=== PATIENT | male | born 1965 | race Caucasian/White ===

== ENCOUNTER 2020-08-03 16:57 | Emergency (ER) | payer BC, SELFPAY ==
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
[2020-08-03 16:59] VITALS: BP 135/77; PULSE 85; RESP 22; TEMP 36.7; O2SAT 100
[2020-08-03] MEDS: ONDANSETRON INJ 4 MG/2 ML VIAL IV PUSH (17:14)
[2020-08-03] MEDS: MORPHINE SULFATE (*CRX) 4 MG/ML INJ IV PUSH (17:14)
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
[2020-08-03 18:08] VITALS: BP 136/76; PULSE 80; RESP 18; O2SAT 99
== END 2020-08-03 18:10 | disposition short-term general hospital (02) ==
PROVIDERS: Emergency Provider Emergency Medicine; PCP Family Medicine
DX: R07.89 Other chest pain (principal); V28.4XXA Motorcycle driver injured in noncollision transport accident in traffic accident, initial encounter
CPT/HCPCS: 71045; 96374; 96375; 99285; J2270; J2405

== ENCOUNTER 2023-07-01 08:32 | Day surgery (SDC) | payer OTHER, SELFPAY ==
[2023-06-16 09:07] VITALS: BMI 30.4
[2023-06-22 11:06] VITALS: BMI 29.2
[2023-07-01 09:48] VITALS: BP 121/99; PULSE 83; RESP 20; TEMP 36.7; O2SAT 99
[2023-07-01] MEDS: LACTATED RINGERS 1,000 ML 150 ML IV CONT (10:02)
--- NOTE | 2023-07-01 10:10 | WPDANESEPPF ---
Anes - Initial Pre Proc Eval Procedure: Operation Date: 07/01/23 11:00 Proposed Procedures p Screening Colonoscopy - Pradeep Hilton MD Date/Time: 07/01/23 10:10 Surgeon: Pradeep Hilton MD Pre Op Diagnosis: Neoplasm Screening Patient Data Age: 57 Gender: M Height: 1.8 m Weight: 95.5 kg Last Vital Signs Temp 36.7 C 07/01/23 09:48 Pulse 83 07/01/23 09:48 Resp 20 07/01/23 09:48 BP 121/99 H 07/01/23 09:48 Pulse Ox 99 07/01/23 09:48 O2 Del Method Room Air 07/01/23 09:48 Allergies Allergy/AdvReac Type Severity Reaction Status Date / Time levofloxacin AdvReac Unknown Nausea Verified 07/01/23 09:45 sulfamethoxazole AdvReac Unknown Nausea Verified 07/01/23 09:45 Home Medications Medication Instructions Recorded Confirmed Type dolutegravir 50 mg-lamivudine 300 1 tablet PO DAILY 06/14/23 07/01/23 History mg tablet (Dovato) sodium,potassium,mag sulfates 17.5 See Rx Instructions PO .COMPLEX 06/16/23 06/22/23 Rx gram-3.13 gram-1.6 gram oral soln #354 mL (Suprep Bowel Prep Kit) cetirizine 10 mg tablet (Zyrtec) 10 mg PO DAILY PRN Allergic 06/22/23 07/01/23 History Symptoms multivit with minerals-iron 18 1 tablet PO DAILY 06/22/23 06/22/23 History mg-folic ac 400 mcg-vit K 25 mcg tablet (Adults Multivitamin) Patient hx anesthesia problems: none Family hx anesthesia problems: none Results Review: All pre-operative results and documents have been reviewed as part of the pre-operative evaluation. [facility] Past Medical History Medical History Allergic rhinitis History of HIV infection Surgical History Surgical History History of tonsillectomy 02/07/2013 Family History Family History Mother No problems noted. Father No problems noted. Grandparent Malignant neoplasm of prostate COPD (chronic obstructive pulmonary disease) Lung cancer Dementia Social History Social History Smoking status: Never smoker Alcohol intake: current Substance use: never Substance use type: does not use Do You Feel Safe in your Home?: Yes Lack of Transportation: No Lack of Food: Never True Current Housing: I Have Housing Concerned About Future Housing: No Difficulty Paying Gas/Electric Bills: No Difficulty Paying for Meds: No Currently Unemployed: No Education: High School Diploma/GED Difficulty w/ Childcare or Family Care: No Living arrangements: with family Occupation/Education: occupation Gender identity (if verbalized by the patient): Male Sexual Orientation (if Verbalized by the Patient): Straight or Heterosexual Spiritual care concerns: No Anes - Eval Final PreProcedure Day of Procedure 07/01/23 10:10 Patient weight: overweight Heart: regular rate and rhythm Lungs: clear to auscultation Airway: Mallampati scale class II Neurological: alert and oriented Last oral intake: >/= 8 hours ASA classification: III Emergent: no Anesthetic plan: proceed Anesthesia type and monitoring: general GIVS and standard monitoring Results Review: All pre-operative results and documents have been reviewed as part of the pre-operative evaluation. Informed Consent: The patient's anesthetic plan and its attendant risks and benefits were discussed with the patient/family/POA. Questions were solicited and answers provided to the satisfaction of the patient/family/POA.
--- NOTE | 2023-07-01 10:13 | PM.HPGS ---
History of Present Illness History of Present Illness Consent: Risks, benefits, and alternatives have been discussed and questions answered. Patient agrees to proceed with procedure. Chief complaint: Neoplasm Screening Narrative: Deion Cerna is a 57 year old male presents for screening colonoscopy. Patient's current weight appetite and bowel movements are normal. Patient is abdominal pain. He has had no bleeding. Family history is significant his mother had colon cancer. Patient himself had colon polyps diagnosed 5 years ago. These were benign tubular adenomas. Review of Systems Review of Systems: Review of systems is noncontributory. [facility] Past Medical History Medical History Allergic rhinitis History of HIV infection Surgical History Surgical History History of tonsillectomy 02/07/2013 Family History Family History Mother No problems noted. Father No problems noted. Grandparent Malignant neoplasm of prostate COPD (chronic obstructive pulmonary disease) Lung cancer Dementia Social History Social History Smoking status: Never smoker Alcohol intake: current Substance use: never Substance use type: does not use Do You Feel Safe in your Home?: Yes Lack of Transportation: No Lack of Food: Never True Current Housing: I Have Housing Concerned About Future Housing: No Difficulty Paying Gas/Electric Bills: No Difficulty Paying for Meds: No Currently Unemployed: No Education: High School Diploma/GED Difficulty w/ Childcare or Family Care: No Living arrangements: with family Occupation/Education: occupation Gender identity (if verbalized by the patient): Male Sexual Orientation (if Verbalized by the Patient): Straight or Heterosexual Spiritual care concerns: No Meds Home Medications and Allergies Home Medications Medication Instructions Recorded Confirmed Type dolutegravir 50 mg-lamivudine 300 1 tablet PO DAILY 06/14/23 07/01/23 History mg tablet (Dovato) sodium,potassium,mag sulfates 17.5 See Rx Instructions PO .COMPLEX 06/16/23 06/22/23 Rx gram-3.13 gram-1.6 gram oral soln #354 mL (Suprep Bowel Prep Kit) cetirizine 10 mg tablet (Zyrtec) 10 mg PO DAILY PRN Allergic 06/22/23 07/01/23 History Symptoms multivit with minerals-iron 18 1 tablet PO DAILY 06/22/23 06/22/23 History mg-folic ac 400 mcg-vit K 25 mcg tablet (Adults Multivitamin) Allergies Allergy/AdvReac Type Severity Reaction Status Date / Time levofloxacin AdvReac Unknown Nausea Verified 07/01/23 09:45 sulfamethoxazole AdvReac Unknown Nausea Verified 07/01/23 09:45 Vital Signs Vital Signs - 24 hr 07/01/23 09:48 Temperature 98.0 F Pulse Rate 83 Respiratory Rate 20 Blood Pressure 121/99 H Pulse Oximetry 99 Oxygen Delivery Room Air Exam Narrative: Physical exam reveals patient alert. Vital signs stable. HEENT exam is unremarkable. Patient is anicteric. Lungs are clear to auscultation and to percussion is without murmur or extra sounds. Abdomen bowel sounds are present soft nontender with no organomegaly. Digital external rectal exam normal. Assessment and Plan Assessment and plan (1) History of colon polyps: Code(s): Z86.010 - Personal history of colonic polyps Status: Acute Assessment and Plan: Patient was found to have benign tubular adenoma at the time of colonoscopy 5 years ago. Plan for surveillance colonoscopy at 5 year intervals. (2) Family history of colon cancer in mother: Code(s): Z80.0 - Family history of malignant neoplasm of digestive organs Status: Acute Assessment and Plan: Patient's mother has surveillance colonoscopy at 5 year intervals.
[2023-07-01 11:04] VITALS: BP 104/68; PULSE 73; RESP 16; O2SAT 100
[2023-07-01 11:14] VITALS: BP 115/78; PULSE 72; RESP 16; O2SAT 99
[2023-07-01 11:24] VITALS: BP 120/91; PULSE 64; RESP 18; O2SAT 100
--- NOTE | 2023-07-01 11:25 | WPDANESPN ---
Anes - Prog Note Post-Op Date/Time: 07/01/23 11:25 Cardiovascular status: normal Respiratory status: normal Airway patency: baseline Mental status: baseline Post-Op hydration status: normal Vital Signs: Last Vital Signs Temp 36.7 C 07/01/23 09:48 Pulse 73 07/01/23 11:04 Resp 16 07/01/23 11:04 BP 104/68 07/01/23 11:04 Pulse Ox 100 07/01/23 11:04 O2 Del Method Room Air 07/01/23 11:04 Pain Score (VAS): 0/10 I/O: Intake & Output 06/30/23 07/01/23 07/01/23 23:59 07:59 15:59 Intake Total 600 Balance 600 Patient Feedback: Patient satisfied with anesthetic care.
== END 2023-07-01 11:40 | disposition home or self-care (01) ==
PROVIDERS: PCP Family Medicine; Visit Provider Internal Medicine Gastroenterology
PROC: 0DJD8ZZ Inspection of Lower Intestinal Tract, Via Natural or Artificial Opening Endoscopic (ICD-10-PCS; CPT 45378; principal; 2023-07-01 11:00)
DX: Z86.010 Personal history of colon polyps (principal); K57.30 Diverticulosis of large intestine without perforation or abscess without bleeding; K64.8 Other hemorrhoids
CPT/HCPCS: 45378